=== PATIENT | female | born 1985 | race Caucasian/White ===

== ENCOUNTER 2016-10-15 02:00 | Inpatient (IN) | payer OTHER ==
[~2016-10-15] VITALS: Ht 165.1 cm; Wt 64.4 kg
--- NOTE | ~2016-10-15 | DS ---
Unit #: [id number] #: [id number] Patient: BEBE KING [id number] [facility] [address] [place] [address] [id number] MR#: [id number] NAME: BEBE KING ROOM: [facility] Age: 31 Sex: F Admission Date: 10/15/2016 : 1985 Discharge Date: 10/16/2016 Attending Physician: Kee Parker M.D. DISCHARGE SUMMARY REASON FOR ADMISSION The patient is a white female, admitted with recurrent suicidal ideation following recent alcohol relapse. HOSPITAL COURSE The patient was admitted briefly to the [facility] unit, and placed on a routine detoxification protocol for alcohol. Suicide precautions were initiated. This physician was informed that the patient had suffered two grand mal seizures on 10/15 and the decision was made to transfer the patient to [facility]. DISCHARGE DIAGNOSES [place] I Alcohol use disorder. Dysthymic disorder. Cocaine use disorder by history. Opioid use disorder, by history. [place] II [place] III [place] IV [place] V DISPOSITION ON DISCHARGE The patient is discharged to [facility] with no followup plan at this time. Dictated by... Kee Parker M.D. CB/david TD: 10/18/2016 08:26 JOB #: [id number] Unit #: [id number] #: [id number] Patient: BEBE KING DISCHARGE SUMMARY Page 1 of 1 X Kee Parker MD X DISCHARGE SUMMARY
--- NOTE | ~2016-10-15 | HP ---
Unit #: [id number] #: [id number] Patient: BEBE KING [id number] [place] [address] [id number] I MR#: [id number] NAME: BEBE KING ROOM: 86 Age: 31 Sex: F Admission Date: 10/15/2016 : 1985 Attending Physician: Kee Parker M.D. Admitting Physician: Kee Parker M.D. HISTORY AND PHYSICAL HISTORY OF PRESENT ILLNESS Elena is a 31 year old admitted to [facility] because of her continued abuse of alcohol. PAST MEDICAL HISTORY 1. Long history of alcohol abuse. 2. Seizure disorder. PAST SURGICAL HISTORY 1. Appendectomy. 2. Tubal ligation. 3. x2. 4. LEEP procedure. ALLERGIES Flagyl, doxycycline, Toradol, Ultram. SOCIAL HISTORY Smokes greater than 1 pack per day. Drinks alcohol on occasion, although she has a prior history of abuse. She denies illicit drug use. FAMILY HISTORY Medically noncontributory. REVIEW OF SYSTEMS CONSTITUTIONAL: No fever or chills. HEENT: Denies any sore throat, ear pain or runny nose. CARDIOVASCULAR: Denies chest pain, irregular heart rhythm or palpitations. CHEST: Denies shortness of breath or cough. No hemoptysis. GASTROINTESTINAL: Denies nausea, vomiting, diarrhea or chronic constipation. ENDOCRINE: Denies history of increased thirst or urination. No recent significant weight loss or gain. GENITOURINARY: Denies dysuria, frequency, or hematuria. SKIN: Denies any rashes. HEMATOLOGIC: Denies history of increased bleeding or bruising. MUSCULOSKELETAL: Denies any hot, swollen joints. No generalized muscle pain. NEUROLOGIC: Denies problems with vision or speech. No frequent, severe headaches. No numbness, tingling or weakness in any extremities. Denies loss of bladder or bowel control. CURRENT MEDICATIONS Unit #: [id number] #: [id number] Patient: BEBE KING 1. Risperdal 3 mg q.h.s. 2. Depakote ER 500 mg b.i.d. 3. Phenergan 25 mg b.i.d. 4. Neurontin 300 mg t.i.d. 5. Ibuprofen 800 mg t.i.d. 6. Milk of Magnesia p.r.n. 7. Maalox p.r.n. 8. Tylenol p.r.n. 9. Nicotine patch 21 mg daily. PHYSICAL EXAMINATION GENERAL: Alert, well-nourished, in no apparent distress. VITAL SIGNS: Blood pressure 100/70, heart rate 80, respirations 16, temperature 98.6. WEIGHT: 142. HEIGHT: 5 feet 5 inches. SKIN: Warm and dry without rash or lesion. HEENT: Normocephalic. TMs not viewed. Oral and nasal passages clear. Conjunctivae clear. PERRLA. EOMs intact. NECK: Supple without lymphadenopathy or thyromegaly. HEART: Regular rate and rhythm without murmur. LUNGS: Clear. ABDOMEN: Soft, nontender. : Not done. EXTREMITIES: No evidence of cyanosis, clubbing or edema. Moves all without focal deficit. NEUROLOGICAL: Grossly within normal limits. Cranial Nerves: II: Visual guerrero are intact. III, IV AND : Extraocular movements are intact. Pupils are equal, round and reactive to light. V: Facial sensation is grossly normal. VII: Facial movements and expression are normal. VIII: Auditory acuity grossly intact. IX, X: Uvula is midline. Phonation is normal. XI: Patient shrugs shoulders and turns head normally. XII: Tongue protrudes in the midline. Sensory and Motor Function: Sensory and motor sensation is grossly normal. Motor: moves all extremities well. Coordination: Gait is normal. Deep Tendon Reflexes: Intact. IMPRESSION Psychiatric admission. RECOMMENDATIONS PSYCHIATRIC: Per psychiatrist. MEDICAL: See no contraindication to participate in facility's activities. MEDICAL PROGNOSIS Good. MEDICAL CONDITION Stable. Dictated by... Melia Hickey P.A.-C. for Mike Gonzáles M.D. Unit #: [id number] #: [id number] Patient: BEBE KING RUDDY/jacinto TD: 10/15/2016 19:37 JOB #: [id number] HISTORY AND PHYSICAL Page 1 of 1 X Melia Hickey HISTORY AND PHYSICAL
--- NOTE | ~2016-10-15 | PA ---
Unit #: [id number] #: [id number] Patient: BEBE KING [id number] [facility] [address] [place] [address] [id number] I MR#: [id number] NAME: BEBE KING ROOM: [facility] Age: 31 Sex: F Admission Date: 10/15/2016 : 1985 Date of Assessment: 10/15/2016 Attending Physician: Kee Parker M.D. Admitting Physician: Kee Parker M.D. PSYCHIATRIC ASSESSMENT IDENTIFYING INFORMATION The patient is a 31-year-old white female admitted to the [facility] unit with increasing thoughts of suicide and recent relapse of alcohol use. INFORMANT(S) Chart. Patient cannot be aroused for interview. CHIEF COMPLAINT None given. HISTORY OF PRESENT ILLNESS The patient is a 31-year-old white female admitted in transfer from [facility]. She had been taken there by her sponsor following a relapse of alcohol use. The patient has a history of polysubstance dependence including abuse of heroin and crack cocaine but has apparently been clean for the past 5 months prior to yesterday's relapse. The patient is originally from [place] and has little support in the [place], [place] area. She is prescribed Risperdal, Neurontin and Depakote per report of the chart. When seen today, the patient is abed and cannot be aroused for interview. She had voiced some positive suicidal ideation and increased auditory hallucinations at time of admission. PAST PSYCHIATRIC HISTORY The patient is prescribed Risperdal, Neurontin and Depakote for what one would assume is a bipolar spectrum disorder. She also has a significant substance abuse history. The patient reports a history of self-mutilatory behavior dating to the age of 14. She reports her last suicide attempt was about 8 years ago when she tried to overdose on heroin. FAMILY HISTORY Noncontributory. SOCIAL HISTORY The patient is originally from [place]. MEDICAL HISTORY Patient suffers from migraine headache. MEDICATION HISTORY 1. Alinia. 2. Promethazine. 3. Ibuprofen. 4. Risperdal. Unit #: [id number] #: [id number] Patient: BEBE KING 5. Divalproex. 6. Neurontin. 7. Fioricet. ALLERGIES Doxycycline, Toradol, Flagyl, tramadol. SUBSTANCE ABUSE HISTORY As noted previously. MENTAL STATUS EXAM At this time reveals the patient to be a soundly sleeping female appearing stated age. Multiple attempts to arouse the patient are unsuccessful. ASSETS AND LIABILITIES Patient's assets to be assessed. Liabilities, lack of resources. ADMITTING DIAGNOSES 1. Schizoaffective disorder. 2. Opioid use disorder. 3. Alcohol use disorder. 4. Cocaine use disorder. 5. Migraine headache by history. PSYCHIATRIC PLAN/TREATMENT GOALS The patient remains hospitalized for safety and stabilization. We will restart previously prescribed medications with the patient watching for any signs of substance withdrawal. The patient will participate in appropriate alvarez and milieu activities. ESTIMATED LENGTH OF STAY Five to seven days. Dictated by... Kee Parker M.D. MILAGRO/jaicnto TD: 10/15/2016 15:54 JOB #: [id number] PSYCHIATRIC ASSESSMENT Page 1 of 1 X Kee Parker MD X PSYCHIATRIC ASSESSMENT
[2016-10-15 12:38] LABS: BASOPHIL# 0.1 X10e3 (0-0.3); EOSINOPHIL% 0.1 % (0.0-7.0); HEMATOCRIT 39.6 % (35.0-45.0); HEMOGLOBIN 13.9 gm/dL (12.0-16.0); LYMPHOCYTE# 2.8 X10e3 (1.0-3.5); LYMPHOCYTE% 47.1 % (17.0-45.0); MEAN CELL VOLUME 98.1 FL (83-96); MEAN CORPUSCULAR HEMOGLOBIN 34.4 PG (28-34); MEAN CORPUSCULAR HGB CONC 35.1 g/dL (30-36); MEAN PLATELET VOLUME 8.7 FL (6.5-11.5); MONOCYTE# 0.4 X10e3 (0-1.0); MONOCYTE% 7.1 % (3.0-12.0); NEUTROPHIL# 2.7 X10e3 (1.5-7.1); NEUTROPHIL% 44.7 % (40-75); PLATELET COUNT 194 X10e3 (140-420); RED BLOOD COUNT 4.04 X10e (3.90-5.30); RED CELL DISTRIBUTION WIDTH 12.3 % (11.0-15.5)
[2016-10-15 12:43] LABS: DIFF IND NO
[2016-10-15 12:53] LABS: ALBUMIN SERUM 3.4 g/dL (3.5-5.0); BILIRUBIN,TOTAL 0.7 mg/dL (0.2-2.0); BUN/CREATININE RATIO 17.77; CREATININE SERUM 0.9 mg/dL (0.6-1.4); GLOM FILT RATE Estimated 85.3 mL/min (>60); POTASSIUM 4.8 mmol/L (3.5-5.1); PROTEIN TOTAL SERUM 5.8 g/dL (6.0-8.3)
== END 2016-10-16 08:00 | disposition short-term general hospital (02) | DRG 885 ==
LOC: P1E 07:23
PROVIDERS: Specialist
PROC: HZ2ZZZZ Detoxification Services for Substance Abuse Treatment (ICD-10-PCS; principal; 2016-10-15)
DX: F25.9 Schizoaffective disorder, unspecified (principal); F11.20 Opioid dependence, uncomplicated; F14.20 Cocaine dependence, uncomplicated; F10.20 Alcohol dependence, uncomplicated; G40.909 Epilepsy, unspecified, not intractable, without status epilepticus; F17.210 Nicotine dependence, cigarettes, uncomplicated; Z88.8 Allergy status to other drugs, medicaments and biological substances
CPT/HCPCS: 80053; 84703; 85025

== ENCOUNTER 2016-10-16 13:00 | Inpatient (IN) | payer OTHER ==
--- NOTE | ~2016-10-16 | DS ---
Unit #: [id number] #: [id number] Patient: BEBE KING [id number] [facility] [address] [place] [address] [id number] I MR#: [id number] NAME: BEBE KING ROOM: [facility] Age: 31 Sex: F Admission Date: 10/17/2016 : 1985 Discharge Date: 10/18/2016 Attending Physician: Kee Parker M.D. Primary Care Physician: Robel Anne D.O. DISCHARGE SUMMARY REASON FOR ADMISSION The patient is a 31-year-old white female briefly readmitted to the hospital following a stay at [facility]. HOSPITAL COURSE The patient was admitted to [facility] and continued on previously prescribed medications including Depakote ER, Neurontin, Risperdal and Motrin. Her stay in the hospital was a brief and uneventful one. She was pleasant, cooperative when seen by this physician on 10/18 and on that date requested discharge, it was so ordered. FINAL DIAGNOSES 1. Schizoaffective disorder. 2. Seizure disorder. FOLLOWUP CARE Followup to take place through the auspices of community mental health resources in the [facility]. DISCHARGE MEDICATIONS The patient is discharged on the following medications: 1. Depakote ER 500 mg b.i.d. for seizure disorder. 2. Neurontin 300 mg b.i.d. for seizure disorder. 3. Risperdal 3 mg at bedtime for psychosis. 4. Motrin 800 mg t.i.d. p.r.n. pain. PROGNOSIS The patient's prognosis is considered fair. DIET AND ACTIVITY No dietary or physical restrictions were placed on the patient at time of discharge. Dictated by... Kee Parker M.D. CB/jacinto Unit #: [id number] #: [id number] Patient: BEBE KING TD: 10/21/2016 15:34 JOB #: [id number] DISCHARGE SUMMARY Page 1 of 1 X Kee Parker MD X DISCHARGE SUMMARY
--- NOTE | ~2016-10-16 | HP ---
Unit #: [id number] #: [id number] Patient: BEBE KING [id number] [facility] [address] [place] [address] [id number] I MR#: [id number] NAME: BEBE KING ROOM: P116 Age: 31 Sex: F Admission Date: 10/17/2016 : 1985 Attending Physician: Kee Parker M.D. Admitting Physician: Kee Parker M.D. Primary Care Physician: Robel Anne D.O. HISTORY AND PHYSICAL NOTE Bebe is a 31 year old admitted to [address] [place] [address] after a brief admission at [facility] for seizures. She evidently has a history of seizures but she had two seizures at [facility] and this necessitated her being sent out to the emergency room and then being admitted. The patient was seen and H and P dated 10/15/2016 was reviewed. This is current. No changes. Please see H and P dated 10/15/2016. Dictated by... Melia Hickey P.A.-C. for Rayne Ballesteros/yoan TD: 10/19/2016 00:20 JOB #: [id number] HISTORY AND PHYSICAL Page 1 of X Melia Hickey HISTORY AND PHYSICAL
--- NOTE | ~2016-10-16 | PA ---
Unit #: [id number] #: [id number] Patient: BEBE KING [id number] [place] [address] [id number] I MR#: [id number] NAME: BEBE KING ROOM: 16 Age: 31 Sex: F Admission Date: 10/17/2016 : 1985 Date of Assessment: 10/18/2016 Attending Physician: Kee Parker M.D. Admitting Physician: Kee Parker M.D. Primary Care Physician: Robel Anne D.O. PSYCHIATRIC ASSESSMENT CHIEF COMPLAINT None given. INFORMANT The patient and chart, reliability good. HISTORY OF PRESENT ILLNESS The patient is a 31-year-old white female who was admitted to the [address] [place] [address] following a brief stay at [facility]. She had suffered a seizure shortly after having been hospitalized at this facility. For more complete history of present illness please refer to previous dictated notes. PAST PSYCHIATRIC HISTORY Reviewed no changes. PAST MEDICAL HISTORY Reviewed no changes. MEDICATIONS Depakote ER, Neurontin, Risperdal, ibuprofen, Phenergan. ALLERGIES Doxycycline, ketorolac, Flagyl, tramadol. FAMILY HISTORY Reviewed no changes. SOCIAL HISTORY Reviewed no changes. MENTAL STATUS EXAM At this time reveals the patient to be a well-developed, well-nourished white female appearing her stated age. She is in no apparent physical distress at the time of examination. She is awake, alert and oriented in all spheres. Her mood is euthymic. Her affect full range. Speech is relevant and coherent. There are no gross deficits to memory or cognition noted. Intelligence is judged to be in the average range based on fund of knowledge. The patient is cooperative throughout the interview. She denies current suicidal or homicidal ideation or psychotic features. Judgement and insight appear to be in intact. ASSETS AND LIABILITIES Unit #: [id number] #: [id number] Patient: BEBE KING ASSETS: Motivation for change. LIABILITIES: Lack of resources. ADMITTING DIAGNOSES 1. Schizoaffective disorder. 2. Seizure disorder. PSYCHIATRIC PLAN/TREATMENT GOALS The patient will be discharged detail account of which will be included in the soon to be dictated discharge summary. Dictated by... Rayne Peters TD: 10/18/2016 22:24 JOB #: [id number] PSYCHIATRIC ASSESSMENT Page 1 of 1 X Kee Parker MD PSYCHIATRIC ASSESSMENT
== END 2016-10-18 13:47 | disposition home or self-care (01) | DRG 885 ==
LOC: P1S 10-17 20:26
DX: F25.9 Schizoaffective disorder, unspecified (principal); F11.20 Opioid dependence, uncomplicated; G40.802 Other epilepsy, not intractable, without status epilepticus; F10.230 Alcohol dependence with withdrawal, uncomplicated; F14.20 Cocaine dependence, uncomplicated; F31.9 Bipolar disorder, unspecified; Z91.14 Patient's other noncompliance with medication regimen; Z88.8 Allergy status to other drugs, medicaments and biological substances; Z85.41 Personal history of malignant neoplasm of cervix uteri; E16.2 Hypoglycemia, unspecified; N73.9 Female pelvic inflammatory disease, unspecified; Z87.820 Personal history of traumatic brain injury; Z79.899 Other long term (current) drug therapy